=== PATIENT | female | born 1980 | race Two or more races ===

== ENCOUNTER 2024-10-23 02:05 | Emergency (ER) | payer OTHER ==
[~2024-10-23] VITALS: Ht 162.6 cm; Wt 77.1 kg
[2024-10-23 02:30] VITALS: BP 117/80; O2SAT 99
[2024-10-23] MEDS ORDERED: FAMOTIDINE/PF 20 MG/2 ML VIAL IV PUSH STA (03:57)
[2024-10-23] MEDS ORDERED: MAG HYDROX/ALUMINUM HYD/SIMETH 30 ML BLIST.PACK PO STA (03:58)
[2024-10-23] MEDS ORDERED: SUCRALFATE 1 G TABLET PO STA (03:58)
[2024-10-23] MEDS ORDERED: ONDANSETRON HCL 2 MG/ML VIAL IV STA (03:58)
[2024-10-23] MEDS ORDERED: PEPCID40 MG PO (05:15)
[2024-10-23] MEDS ORDERED: PROTONIX40 MG PO (05:15)
[2024-10-23] MEDS ORDERED: CARAFATE1 GM/10 ML PO (05:23)
== END 2024-10-23 05:25 ==
LOC: ER 02:07
DX: K21.9 Gastro-esophageal reflux disease without esophagitis (principal)